=== PATIENT | male | born 1990 | race Caucasian/White ===

== ENCOUNTER 2022-10-04 13:20 | Inpatient (IN) | payer MEDICAID, OTHER ==
--- NOTE | 2022-10-04 14:08 | ED ---
General Adult HPI - General Chief complaint: Psychiatric Symptoms Stated complaint: EPS eval Time Seen by Provider: 10/04/22 13:48 Source: patient Mode of arrival: ambulatory Limitations: no limitations - History of Present Illness Initial comments: Dictation was produced using [employer] dictation software. please excuse any grammatical, word or spelling errors. Chief Complaint: 31-year-old male presents emergency department for depression History of Present Illness: 31-year-old male presents emergency dip for depression. Patient's with his sister who is in the medical field. Patient states she's been depressed since being out of retirement. Denies any suicidal homicidal ideation. [facility] who instructed patient to come to the emergency department to be evaluated. Patient has any medical complaints at this time. Denies any visual or auditory hallucinations. The ROS documented in this emergency department record has been reviewed and confirmed by me. Those systems with pertinent positive or negative responses have been documented in the HPI. All other systems are other negative and/or noncontributory. PHYSICAL EXAM: General Impression: Alert and oriented x3, not in acute distress HEENT: Normocephalic atraumatic, extra-ocular movements intact, pupils equal and reactive to light bilaterally, mucous membranes moist. Cardiovascular: Heart regular rate and rhythm Chest: Able to complete full sentences, no retractions, no tachypnea Abdomen: abdomen soft, non-tender, non-distended, no organomegaly Musculoskeletal: Pulses present and equal in all extremities, no peripheral edema Motor: no focal deficits noted Neurological: CN II-XII grossly intact, no focal motor or sensory deficits noted Skin: Intact with no visualized rashes Psych: Normal affect and mood ED course: 31-year-old male presents emergency department for ashen. He believes that he needs to be admitted to inpatient psychiatric unit. Physical examination is benign. Patient has no medical complaints. Patient medically cleared for EPS evaluation. Nursing notes and chart review was performed Patient evaluated by EPS. Will be admitted to psychiatric facility or inpatient psych. Was pt. sent in by a medical professional or institution (, PA, PROTECTIVE SIGNAL REPAIRER HELPER, urgent care, hospital, or [place] [facility] [place] facility...) When possible be specific @ -No Did you speak to anyone other than the patient for history (EMS, parent, family, police, friend...)? What history was obtained from this source @ -Sister Did you review nursing and triage notes (agree or disagree)? Why? @ -I reviewed and agree with nursing and triage notes Were old charts reviewed (outside hosp., previous admission, EMS record, old EKG, old radiological studies, urgent care reports/EKG's, [place] health care facility records)? Report findings @ -No old charts were reviewed Differential Diagnosis (chest pain, altered mental status, abdominal pain women, abdominal pain men, vaginal bleeding, weakness, fever, dyspnea, syncope, headache, dizziness, GI bleed, back pain, seizure, CVA, palpatations, mental health)? @ -not applicable EKG interpreted by me (3pts min.). @ -None X-rays interpreted by me (1pt min.). @ -None done CT interpreted by me (1pt min.). @ -None done U/S interpreted by me (1pt. min.). @ -None done What testing was considered but not performed or refused? (CT, X-rays, U/S, labs)? Why? @ -None What meds were considered but not given or refused? Why? @ -None Did you discuss the management of the patient with other professionals (professionals i.e. , PA, PROTECTIVE SIGNAL REPAIRER HELPER, lab, RT, psych nurse, social media editor, online communications manager, teacher, booking police officer, behavioral health case manager)? Give summary @ -No Was smoking cessation discussed for >3mins.? @ -No Was critical care preformed (if so, how long)? @ -No Were there social determinants of health that impacted care today? How? (Homelessness, low income, unemployed, alcoholism, drug addiction, transportation, low edu. Level, literacy, decrease access to med. care, retirement, rehab)? @ -No Was there de-escalation of care discussed even if they declined (Discuss DNR or withdrawal of care, Hospice)? DNR status @ -No What co-morbidities impacted this encounter? (DM, HTN, Smoking, COPD, CAD, Cancer, CVA, ARF, Chemo, Hep., AIDS, mental health diagnosis, sleep apnea, morbid obesity)? @ -None Was patient admitted / discharged? Hospital course, mention meds given and route, prescriptions, significant lab abnormalities, going to OR and other pertinent info. @ -[Admitted to psych unit Undiagnosed new problem with uncertain prognosis? @ -No Drug Therapy requiring intensive monitoring for toxicity (Heparin, Nitro, Insulin, Cardizem)? @ -No Were any procedures done? @ -No Diagnosis/symptom? @ -Depression Acute, or Chronic, or Acute on Chronic? @ -Acute Uncomplicated (without systemic symptoms) or Complicated (systemic symptoms)? @ -default Side effects of treatment? @ -No Exacerbation, Progression, or Severe Exacerbation? @ -No Poses a threat to life or bodily function? How? (Chest pain, [place], [place], pneumonia, PE, COPD, DKA, ARF, appy, cholecystitis, CVA, Diverticulitis, Homicidal, Suicidal, threat to staff... and all critical care pts) @ -No - Related Data Home Medications Medication Instructions Recorded Confirmed No Known Home Medications 10/04/22 10/04/22 Allergies Allergy/AdvReac Type Severity Reaction Status Date / Time No Known Allergies Allergy Verified 10/04/22 14:36 Review of Systems ROS Statement: Those systems with pertinent positive or pertinent negative responses have been documented in the HPI. ROS Other: All systems not noted in ROS Statement are negative. Past Medical History Past Medical History: No Reported History History of Any Multi-Drug Resistant Organisms: None Reported Additional Past Surgical History / Comment(s): wrist surgery Past Psychological History: No Psychological Hx Reported Smoking Status: Vaper Past Alcohol Use History: Daily Past Drug Use History: None Reported, Marijuana General Exam Limitations: no limitations Course Vital Signs 10/04/22 13:26 Temperature 98.5 F Pulse Rate 102 H Respiratory 20 Rate Blood Pressure 126/79 O2 Sat by Pulse 98 Oximetry Medical Decision Making - Lab Data Lab Results 10/04/22 Range/Units 17:27 Coronavirus (PCR) Not Detected (Not Detectd) Disposition Clinical Impression: Depression Disposition: TRANSFER TO PSYCH HOSP/UNIT Condition: Fair Referrals: None,Stated [Primary Care Provider] - 1-2 days Time of Disposition: 18:11
[2022-10-04 18:06] LABS: Appearance,Urine Clear (Clear); Bilirubin,Urine Negative (Negative); Blood,Urine Negative (Negative); Color,Urine Colorless; Glucose,Urine (UA) Negative (Negative); Ketones,Urine Negative (Negative); Leukocyte Esterase,Urine Negative (Negative); Nitrite,Urine Negative (Negative); Protein,Urine Negative (Negative); Specific Gravity,Urine 1.007 (1.001-1.035); Urobilinogen,Urine <2.0 mg/dL (<2.0)
[2022-10-04 18:09] LABS: Basophils # (A) 0.1 k/uL (0-0.2); Basophils % (A) 1 %; Eosinophils # (A) 0.1 k/uL (0-0.7); Eosinophils % (A) 1 %; HCT 43.1 % (39.0-53.0); HGB 14.4 gm/dL (13.0-17.5); Lymphocytes # (A) 2.3 k/uL (1.0-4.8); Lymphocytes % (A) 23 %; MCH 32.8 pg (25.0-35.0); MCHC 33.5 g/dL (31.0-37.0); MCV 97.8 fL (80.0-100.0); Mean Platelet Volume 6.6; Monocytes # (A) 0.7 k/uL (0-1.0); Monocytes % (A) 7 %; Neutrophils # (A) 6.5 k/uL (1.3-7.7); Neutrophils % (A) 65 %; Platelet Count 401 k/uL (150-450); RDW 12.2 % (11.5-15.5)
[2022-10-04 18:37] LABS: ALT 20 U/L (4-49); AST 25 U/L (17-59); African American GFR (CKD) >90 (>60 ml/min/1.73 sqM); Albumin 4.6 g/dL (3.5-5.0); Alkaline Phosphatase 88 U/L (38-126); Anion Gap 8 mmol/L; Blood Urea Nitrogen 12 mg/dL (9-20); Calcium 9.6 mg/dL (8.4-10.2); Carbon Dioxide 26 mmol/L (22-30); Chloride 106 mmol/L (98-107); Glucose 94 mg/dL (74-99); Non-African American GFR(CKD) >90 (>60 ml/min/1.73 sqM); Sodium 140 mmol/L (137-145); Total Bilirubin 0.5 mg/dL (0.2-1.3); Total Protein 7.5 g/dL (6.3-8.2)
[2022-10-04 19:00] LABS: Amphetamine Screen,Urine Not Detected (NotDetected); Barbiturate Screen,Urine Not Detected (NotDetected); Benzodiazepines Screen,Urine Not Detected (NotDetected); Cocaine Screen,Urine Not Detected (NotDetected); Methadone Screen, Urine Not Detected (NotDetected); Opiate Screen,Urine Not Detected (NotDetected); Oxycodone Screen, Urine Not Detected (NotDetected); Phencyclidine Screen,Urine Not Detected (NotDetected); Tricyclic Antidepressant,Urine Not Detected (NotDetected); Urn Cannabinoid Scrn Detected (NotDetected)
[2022-10-04] MEDS ORDERED: HALOPERIDOL LACTATE 5 MG/ML 1 ML VIAL IM PRN (22:35)
[2022-10-04] MEDS ORDERED: ACETAMINOPHEN TAB 325 MG TAB PO PRN (22:35)
[2022-10-04] MEDS ORDERED: MAGNESIUM HYDROXIDE 2,400 MG/10 ML CUP PO PRN (22:35)
[2022-10-04] MEDS ORDERED: MAG HYDROX/AL HYDROX/SIMETH 30 ML CUP PO PRN (22:35)
[2022-10-04] MEDS ORDERED: LORazepam 2 MG/ML INJ IM PRN (22:39)
[2022-10-04] MEDS ORDERED: haloperidoL 5 MG TAB PO PRN (22:40)
[2022-10-04] MEDS ORDERED: QUEtiapine 100 MG TAB PO PRN (22:40)
[2022-10-05] MEDS: LORazepam 1 MG TAB PO PRN ×5 (00:24→20:05)
[2022-10-05] MEDS ORDERED: NICOTINE 14MG/24HR PATCH TRANSDERM SCH (09:00)
[2022-10-05] MEDS: NICOTINE GUM (POLACRILEX) 2 MG GUM BUCCAL PRN ×5 (12:35→21:57)
[2022-10-05] MEDS ORDERED: LORazepam 2 MG/ML INJ IM PRN (14:32)
--- NOTE | 2022-10-05 14:49 | P.HP ---
Psychiatric H&P - . H&P Date: 10/05/22 History & Physical: Allergies Allergy/AdvReac Type Severity Reaction Status Date / Time No Known Allergies Allergy Verified 10/05/22 00:38 Vital Signs Temp 98.5 F 10/04/22 22:50 Pulse 75 10/04/22 22:50 Resp 18 10/04/22 22:50 BP 139/69 10/04/22 22:50 Pulse Ox 98 10/04/22 22:50 FiO2 Intake & Output 10/04/22 10/05/22 10/05/22 18:59 06:59 18:59 Weight 78.018 kg 72.1 kg Laboratory Last Values WBC 10.0 k/uL (3.8-10.6) 10/04/22 17:48 RBC 4.40 m/uL (4.30-5.90) 10/04/22 17:48 Hgb 14.4 gm/dL (13.0-17.5) 10/04/22 17:48 Hct 43.1 % (39.0-53.0) 10/04/22 17:48 MCV 97.8 fL (80.0-100.0) 10/04/22 17:48 MCH 32.8 pg (25.0-35.0) 10/04/22 17:48 MCHC 33.5 g/dL (31.0-37.0) 10/04/22 17:48 RDW 12.2 % (11.5-15.5) 10/04/22 17:48 Plt Count 401 k/uL (150-450) 10/04/22 17:48 MPV 6.6 10/04/22 17:48 Neutrophils % 65 % 10/04/22 17:48 Lymphocytes % 23 % 10/04/22 17:48 Monocytes % 7 % 10/04/22 17:48 Eosinophils % 1 % 10/04/22 17:48 Basophils % 1 % 10/04/22 17:48 Neutrophils # 6.5 k/uL (1.3-7.7) 10/04/22 17:48 Lymphocytes # 2.3 k/uL (1.0-4.8) 10/04/22 17:48 Monocytes # 0.7 k/uL (0-1.0) 10/04/22 17:48 Eosinophils # 0.1 k/uL (0-0.7) 10/04/22 17:48 Basophils # 0.1 k/uL (0-0.2) 10/04/22 17:48 Sodium 140 mmol/L (137-145) 10/04/22 17:48 Potassium 4.0 mmol/L (3.5-5.1) 10/04/22 17:48 Chloride 106 mmol/L (98-107) 10/04/22 17:48 Carbon Dioxide 26 mmol/L (22-30) 10/04/22 17:48 Anion Gap 8 mmol/L 10/04/22 17:48 BUN 12 mg/dL (9-20) 10/04/22 17:48 Creatinine 0.82 mg/dL (0.66-1.25) 10/04/22 17:48 Est GFR (CKD-EPI)AfAm >90 (>60 ml/min/1.73 sqM) 10/04/22 17:48 Est GFR (CKD-EPI)NonAf >90 (>60 ml/min/1.73 sqM) 10/04/22 17:48 Glucose 94 mg/dL (74-99) 10/04/22 17:48 Calcium 9.6 mg/dL (8.4-10.2) 10/04/22 17:48 Total Bilirubin 0.5 mg/dL (0.2-1.3) 10/04/22 17:48 AST 25 U/L (17-59) 10/04/22 17:48 ALT 20 U/L (4-49) 10/04/22 17:48 Alkaline Phosphatase 88 U/L (38-126) 10/04/22 17:48 Total Protein 7.5 g/dL (6.3-8.2) 10/04/22 17:48 Albumin 4.6 g/dL (3.5-5.0) 10/04/22 17:48 Urine Color Colorless 10/04/22 17:48 Urine Appearance Clear (Clear) 10/04/22 17:48 Urine pH 6.0 (5.0-8.0) 10/04/22 17:48 Ur Specific [place] 1.007 (1.001-1.035) 10/04/22 17:48 Urine Protein Negative (Negative) 10/04/22 17:48 Urine Glucose (UA) Negative (Negative) 10/04/22 17:48 Urine Ketones Negative (Negative) 10/04/22 17:48 Urine Blood Negative (Negative) 10/04/22 17:48 Urine Nitrite Negative (Negative) 10/04/22 17:48 Urine Bilirubin Negative (Negative) 10/04/22 17:48 Urine Urobilinogen <2.0 mg/dL (<2.0) 10/04/22 17:48 Ur Leukocyte Esterase Negative (Negative) 10/04/22 17:48 Urine Opiates Screen Not Detected (NotDetected) 10/04/22 17:48 Ur Oxycodone Screen Not Detected (NotDetected) 10/04/22 17:48 Urine Methadone Screen Not Detected (NotDetected) 10/04/22 17:48 Ur Propoxyphene Screen Not Detected (NotDetected) 10/04/22 17:48 Ur Barbiturates Screen Not Detected (NotDetected) 10/04/22 17:48 U Tricyclic Antidepress Not Detected (NotDetected) 10/04/22 17:48 Ur Phencyclidine Scrn Not Detected (NotDetected) 10/04/22 17:48 Ur Amphetamines Screen Not Detected (NotDetected) 10/04/22 17:48 U Methamphetamines Scrn Not Detected (NotDetected) 10/04/22 17:48 U Benzodiazepines Scrn Not Detected (NotDetected) 10/04/22 17:48 Urine Cocaine Screen Not Detected (NotDetected) 10/04/22 17:48 U Marijuana (THC) Screen Detected (NotDetected) H 10/04/22 17:48 Coronavirus (PCR) Not Detected (Not Detectd) 10/04/22 17:27 10/05/22 14:22 IDENTIFYING DATA: Patient is a 31-year-old male, 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 Patient was petitioned by patients sister who claims that patient has "paranoid someone is always trying to set him up or following him". Patient also states that patient hasn't has been having "anxiety panic attacks remembering detention incidents". Patient was admitted involuntarily to the mental health unit. Patient was seen conversing with other patients in the activities group and agreeable senior speech pathologist in the office. Patient was rambling at times and appeared to be defensive. He states that he was wrongfully imprisoned for 96 months for robbery and assault. He claims that "there was no gun" and states that it went to a jury trial. He claims that he is currently a felon and was released from detention about a year ago and claims that he feels that "my whole world's falling apart". He claimed that he does have elevated levels of anxiety and also depression. 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 He claims that he does have some mild paranoia, has been avoiding crowds and on edge. He states that his sleep has been on and off, appetite has been fair. Patient denies any suicidal or homicidal ideations intent or plan. At this time patient denies any auditory or visual hallucinations. Patient denies any flight of ideas racing thoughts and increased in goal directed behavior. Patient admits to using marijuana approximately one joint a day, vapes daily. PAST PSYCHIATRIC HISTORY: Patient states that she has no previous psychiatric history. Patient denies being on any psychiatric medications. Patient denies any previous psychiatric hospitalizations. Patient denies any psychiatric outpatient follow-up. Patient denies any history of suicide attempts in the past. Past Medical History: No Reported History History of Any Multi-Drug Resistant Organisms: None Reported Additional Past Surgical History / Comment(s): wrist surgery Past Psychological History: No Psychological Hx Reported Smoking Status: Vaper Past Alcohol Use History: Daily Past Drug Use History: None Reported, Marijuana ALLERGIES: as per EMR CHEMICAL DEPENDENCY HISTORY: as per HPI FAMILY PSYCHIATRIC/SUBSTANCE USE HISTORY: denies SOCIAL HISTORY: Patient was born and raised in [place] [facility]. He claims that he completed his GED. He states that he was imprisoned at the age of 19 for 96 months for robbery and assault charges. 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 MENTAL STATUS EXAM: General Appearance: Patient appears to be thin, short hair, stated age is alert, directable yet argumentative at times. Suspicious pensive. Patient appears to have poor hygiene and grooming. Behavior: Patient is seated without any agitated behavior. Speech: Patient's speech is fluent and nonpressured. Rambling at times. Mood/Affect: Patient reports their mood is depressed and anxious, affect is co ngruent Suicidality/Homicidality: Patient denies having any homicidal ideation intent or plan. Denies any suicidal ideations intent or plan Perceptions: Patient denies any visual hallucinations and denies any auditory hallucinations Though content/process: There is no evidence of any delusional thought content and thought process is linear and goal-directed. Minimizing his need for medications. Memory and concentration: AOX3, grossly intact for the purposes of this session. Can spell "WORLD" backwards Judgment and insight: poor STRENGTHS/WEAKNESSES: strength is that patient is resilient. Weakness is that patient has poor judgment and is impulsive INTELLECT: average IMPRESSIONS: Adjustment disorder with depressed mood and anxiety PTSD Cannabis use disorder Nicotine dependence PLAN: -Patient is admitted under voluntary status to MHU for stabilization of psychiatric symptoms and safety. Patient has signed adult voluntary form and medication consent and is placed in patient's chart. -Medications : Will start patient on Zoloft 50 mg daily for mood/anxiety, alternatively milligrams daily at bedtime for sleep. Trazodone 50 mg daily at bedtime for insomnia/mood. -Ativan and Haldol PRN for agitation/aggression -Patient was counselled on substance abuse and desired to cut back on use -Patient was informed of the risks, benefits and side effects of the medication and patient verbally consented to taking the medications. Patient signed med consent form and was placed in chart. -Internal Medicine consult to perform medical evaluation and physical. -NRT - nicotine patch -SW on board for discharge planning. Encourage patient to participate in groups to work on coping skills. 10/05/22 14:42 10/05/22 14:44
[2022-10-05] MEDS: traZODone HCL 50 MG TAB PO PRN (20:05)
[2022-10-05] MEDS ORDERED: traZODone HCL 50 MG TAB PO SCH (21:00)
[2022-10-05] MEDS: MELATONIN 5 MG TABLET PO SCH (21:58)
--- NOTE | 2022-10-06 03:28 | P.CONS ---
History of Present Illness - Reason for Consult Consult date: 10/06/22 - History of Present Illness The patient is a 31-year-old male with no known PMH who presented to the emergency room with complaints of anxiety and depression. The patient was admitted to the mental health unit where he was seen and evaluated. The patient reports that he had been struggling with anxiety after serving an 8 year long care home sentence. He reports feeling at baseline at the time of interview. Denied experiencing chest discomfort, shortness of breath, fever, chills, cough, nausea, vomiting, abdominal pain, diarrhea. Reports recreational marijuana use. Denied alcohol or tobacco use. Review of systems: Pertinent positives and negatives as discussed in HPI, a complete review of systems was performed and all other systems are negative. Physical examination: General: non toxic, no distress, appears at stated age, normal weight Derm: no unusual rashes/lesions, no unusual ecchymoses, warm, dry Head: atraumatic, normocephalic, symmetric Eyes: EOMI, no lid lag, anicteric sclera ENT: Nose and ears atraumatic, no thrush, no pharyngeal erythema Neck: trachea midline, supple Mouth: no lip lesion, mucus membranes moist Cardiovascular: S1S2 reg, no murmur, no edema Lungs: CTA bilateral, no rhonchi, no rales , no accessory muscle use Abdominal: soft, nontender to palpation, no guarding Ext: no gross muscle atrophy, no contractures, Neuro: No gross focal neuro deficits noted Psych: Alert, oriented, appropriate affect Assessment/plan Marijuana abuse -Advised on importance of cessation Depression and anxiety -As per psychiatry Thank you for allowing us to participate in the care of this patient. We will follow peripherally. Do not hesitate to contact us with questions. Someone can be reached from the [facility] hospitalist group at all hours of the day at [phone]. Past Medical History Past Medical History: No Reported History History of Any Multi-Drug Resistant Organisms: None Reported Additional Past Surgical History / Comment(s): wrist surgery Smoking Status: Vaper - Past Family History Father Family Medical History: No Reported History (healthy ) Medications and Allergies Home Medications Medication Instructions Recorded Confirmed Type No Known Home Medications 10/04/22 10/04/22 History Allergies Allergy/AdvReac Type Severity Reaction Status Date / Time No Known Allergies Allergy Verified 10/05/22 00:38 Results CBC & Chem 7: 10/04/22 17:48 10/04/22 17:48
[2022-10-06] MEDS: LORazepam 1 MG TAB PO PRN ×2 (09:10→18:53)
[2022-10-06] MEDS: NICOTINE GUM (POLACRILEX) 2 MG GUM BUCCAL PRN ×5 (09:11→21:06)
--- NOTE | 2022-10-06 12:29 | P.PN ---
Subjective Principal diagnosis: Progress note Oct 06 2021 He was seen today in person and Rx and history was reviewed. History of traumatic stress realted to incarcernation x 96 months. He complained of escalating episodes of panic attacks and felt his subjective experiense with medication for his panci attacks was not managed well, leaving him "confused " . He did not complain of any paranoid delusions in contrast to the early H/P note. He had parnaoid ides of reference and would like his Rx reasssessed. His subjective experience with Ativan was a positive one ; he was well aware of the risks of dependence; however, SSRI was disliked due to his family member negative experiences. I went over him other Rx: remeron but he did not like it either. HE had secondary mood changes of irritability and complained [facility]. OBj:: Mental status exam. dressed appropriately, he was somewhat pressured ; however, he remained coherent with jittery movement of his extremities. Affect; slighlty agitated and irritable congruent with his thought content. Somewhat obsessed or preocuupied with his legal experience. He talked about his engagement with the residential program for his mental health problem and found the change too much for him to manage as well as his interersonal stressors. Full range of affect. Thught process; No hallucinations. No paranoid delusions or ideas of reference. No suicidal or homicidal ideaitons. Cog: oriented , Fair insight into his conditon Diagnosis; Psychosis NOS. to rule out paranoid delusional disorder. PTSD and panic disorder. differential atypical depressive disorder NOS Management HE agreed with the plan Rx of starting him on low dosage of gABApentin 100 mg po bid; No history of opioid use. He would continue to be on 1 mg po prn ativan. He would be encouraged to participate in unit activities. and to plan for next stage of his recovery. Discharge planning : as scheduled. Rx. for PTSD and Panic attacks : psychoeducational materials were explaiend to pt. monitor response by tomorrow Objective - Vital Signs Vital signs: Vital Signs Temp 98.2 F 10/05/22 22:34 Pulse 100 10/06/22 09:12 Resp 17 10/05/22 22:34 BP 124/69 10/06/22 09:12 Pulse Ox 97 10/05/22 22:34 FiO2 - Labs CBC & Chem 7: 10/04/22 17:48 10/04/22 17:48
[2022-10-06] MEDS: GABAPENTIN 100 MG CAP PO SCH (21:05)
[2022-10-06] MEDS: MELATONIN 5 MG TABLET PO SCH (21:20)
[2022-10-07] MEDS: LORazepam 1 MG TAB PO PRN ×3 (00:08→20:01)
[2022-10-07] MEDS: NICOTINE GUM (POLACRILEX) 2 MG GUM BUCCAL PRN ×8 (00:10→23:44)
[2022-10-07 00:11] VITALS: RESP 16
[2022-10-07] MEDS: GABAPENTIN 100 MG CAP PO SCH ×2 (08:54→20:01)
[2022-10-07] MEDS: NICOTINE 7MG/24HR PATCH TRANSDERM SCH (14:03)
[2022-10-07] MEDS: traZODone HCL 50 MG TAB PO PRN ×2 (20:03→23:44)
--- NOTE | 2022-10-07 20:55 | P.PN ---
Subjective Progress Note Date: 10/07/22 Principal diagnosis: Progress note He was seen tdoay for review of his Rx.He was still preoccupied with Rx; and his need for PRN Loraxepam 2 mg . HE was cautioned with abuse and dependence of BNZ; howver, he admitted he was experienceing flashback of his 8 years of incarcernation . He has cryin spell sporadic and wanted for his AP pentin to continue. HE showed good response to low dosage of Gabaenin. He did not abuse opiat and hence no advese events to combined GABApentin of his Rx. He was asked to be formualting discharge planning. Diag; PTSD comorbid Depessive Disorder NOS. Plan: He fulfilled criteria of inpatient admisiosn. Readay to be discharge by mid-week Follow up imortant for him to prevent relapse. Objective - Vital Signs Vital signs: Vital Signs Temp 97.9 F 10/07/22 00:10 Pulse 101 H 10/07/22 10:10 Resp 16 10/07/22 00:10 BP 130/80 10/07/22 10:10 Pulse Ox 98 10/07/22 00:10 FiO2 - Labs CBC & Chem 7: 10/04/22 17:48 10/04/22 17:48
[2022-10-07] MEDS: MELATONIN 5 MG TABLET PO SCH ×2 (23:41→23:44)
[2022-10-08 07:10] VITALS: TEMP 98.2
[2022-10-08] MEDS: LORazepam 1 MG TAB PO PRN ×2 (08:04→16:52)
[2022-10-08] MEDS: NICOTINE 7MG/24HR PATCH TRANSDERM SCH (08:04)
[2022-10-08] MEDS: NICOTINE GUM (POLACRILEX) 2 MG GUM BUCCAL PRN ×4 (08:04→16:53)
[2022-10-08] MEDS: GABAPENTIN 100 MG CAP PO SCH (09:35)
--- NOTE | 2022-10-08 14:12 | P.PN ---
Progress Note - Text Progress Note Date: 10/08/22 Interval History: Patient was seen wandering the hallways and was agreeable to speak with group underwriter in the office. Patient continues to be irritable at times and demanding. He was also rambling about the medications and claims that is not helping him. He was fairly focused on the Neurontin. He was in fact agreeable to try the Zoloft today and also a low dose of Seroquel as he is still not sleeping at nighttime. He claims he is feeling very anxious on the unit and claims that "it reminded me of present". He claims that he is eating fairly at this time and trying to go to groups. At this time patient denies any suicidal or homical ideations, intent or plan. Patient denies any auditory, visual hallucinations and denies any delusions. Initially mildly paranoid and argumentative. Patient denies any side effects from the medications and has been compliant with meds. Mental Status Exam: General Appearance: Patient appears to be thin, short hair, stated age is alert, directable yet argumentative at times. Patient appears to have improving hygiene and grooming. Behavior: Patient is seated without any agitated behavior. Argumentative. Mild paranoia. Speech: Patient's speech is fluent and nonpressured. Rambling at times. Mood/Affect: Patient reports their mood is depressed and anxious, affect is congruent Suicidality/Homicidality: Patient denies having any homicidal ideation intent or plan. Denies any suicidal ideations intent or plan Perceptions: Patient denies any visual hallucinations and denies any auditory hallucinations Though content/process: There is no evidence of any delusional thought content and thought process is linear and goal-directed. Focused on discharge. Memory and concentration: AOX3, grossly intact for the purposes of this session Judgment and insight: poor IMPRESSIONS: Adjustment disorder with depressed mood and anxiety PTSD Cannabis use disorder Nicotine dependence Plan: -Patient continues to meet criteria for inpatient psychiatric admission for symptom stabilization and safety. Patient has signed adult voluntary form and medication consent and was placed in patient's chart. -Medications: Zoloft 50 mg daily for mood/anxiety, Seroquel 25 mg daily at bedtime for insomnia/mood stabilization. -When necessary Ativan and Haldol for agitation/aggression. -NRT - nicotine patch -SW on board for discharge planning. Encouraged the patient to participate in milieu. Likely discharge in 1-2 days.
[2022-10-08] MEDS: SERTRALINE 50 MG TAB PO SCH (14:15)
[2022-10-08 16:55] VITALS: BP 148/90; PULSE 102
[2022-10-08] MEDS: MELATONIN 5 MG TABLET PO SCH (20:11)
[2022-10-08] MEDS ORDERED: QUEtiapine 25 MG TAB PO SCH (21:00)
[2022-10-09] MEDS: NICOTINE GUM (POLACRILEX) 2 MG GUM BUCCAL PRN ×2 (06:57→09:09)
[2022-10-09] MEDS: NICOTINE 7MG/24HR PATCH TRANSDERM SCH (08:30)
[2022-10-09] MEDS: SERTRALINE 50 MG TAB PO SCH (08:30)
[2022-10-09] MEDS: LORazepam 1 MG TAB PO PRN (08:32)
--- NOTE | 2022-10-09 11:38 | P.DS ---
Providers Date of admission: 10/04/22 22:25 Expected date of discharge: 10/09/22 Attending physician: Graham Fitch MD Consults: 10/04/22 22:35 Consult Physician Routine Consulting Provider: Sheng Duval Consult Reason/Comments: H&P Do you want consulting provider notified?: Yes Primary care physician: Stated None - Discharge Diagnosis(es) (1) Adjustment disorder with mixed anxiety and depressed mood Current Visit: Yes Status: Acute Priority: High (2) PTSD (post-traumatic stress disorder) Current Visit: Yes Status: Acute Priority: High (3) Cannabis use disorder Current Visit: Yes Status: Acute Priority: Medium (4) Nicotine dependence Current Visit: Yes Status: Acute Priority: Low Hospital Course: Admission HPI: Admission note was completed by health science writer "Patient is a 31-year-old male, 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 Patient presented to the hospital yesterday with complaints of. Patient was petitioned by patients sister who claims that patient has "paranoid someone is always trying to set him up or following him". Patient also states that patient hasn't has been having "anxiety panic attacks remembering penitentiary incidents". Patient was admitted involuntarily to the mental health unit. 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 Patient was rambling at times and appeared to be defensive. He states that he was wrongfully imprisoned for 96 months for robbery and assault. He claims that "there was no gun" and states that it went to a jury trial. He claims that he is currently a felon and was released from penitentiary about a year ago and claims that he feels that "my whole world's falling apart". He claimed that he does have elevated levels of anxiety and also depression. 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 He claims that he does have some mild paranoia, has been avoiding crowds and on edge. He states that his sleep has been on and off, appetite has been fair. Patient denies any suicidal or homicidal ideations intent or plan. At this time patient denies any auditory or visual hallucinations. Patient denies any flight of ideas racing thoughts and increased in goal directed behavior. Patient admits to using marijuana approximately one joint a day, vapes daily." Hospital course: Upon admission to the unit patient was directable and agreeable to commence treatment and signed adult voluntary form. Patient was initially suspicious of treatment and also being on the unit however with time in treatment, patient eventually got along well with other patients on the unit and followed unit protocol. Patient was compliant with the medications and denied any side effects throughout hospital course. Patient was started on Zoloft 50 mg daily for mood/anxiety, Seroquel 25 mg daily at bedtime for insomnia/mood st abilization. Patient spoke of his stressors and engaged in therapy both group and individual. Patient was also seen by medical team for history and physical exam. Throughout the course of the hospitalization patient gradually improved with regards to mood, anxiety, paranoia, sleep and became more future oriented with improved insight and judgment. On the day of discharge patient denied any suicidal or homicidal ideations intent or plan denied any auditory or visual hallucinations. Patient endorsed wanting to live for his health and family. The patient denied any access to guns or weapons. Patient denied any paranoia and did not endorse any delusions. Patient does have a significant history of substance abuse and was counseled on abstaining from all substances including alcohol and marijuana. Patient was offered however declined inpatient substance- abuse rehab. Patient was also counseled on the medications and need for regular compliance and was encouraged to follow-up with their outpatient appointment for mental health and also for primary care. Prior to discharge a family meeting will be arranged by social service director to answer any questions and ensure safety upon discharge. Mental status exam: General Appearance: Patient appears to be thin, stated age is alert, pleasant, and cooperative. Patient is in no acute distress and has improved hygiene and grooming Behavior: Patient is calmly seated without any agitated behavior. Speech: Patient's speech is fluent and nonpressured. Mood/Affect: Patient reports their mood is "good", affect is congruent and euthymic. Suicidality/Homicidality: Patient denies having any suicidal or homicidal ideation intent or plan. Perceptions: Patient denies any auditory or visual hallucinations. Though content/process: There is no evidence of any delusional thought content and thought process is linear and goal-directed. more future oriented Memory and concentration: AOX3, grossly intact for the purposes of this session. Can spell "WORLD" backwards correctly. Judgment and insight: improved with guarded prognosis Impression: Adjustment disorder mixed with depressed mood and anxiety PTSD Cannabis use disorder Nicotine dependence Plan: -Continue with discharge today as patient has improved and stabilized psychiatrically and is not currently an imminent threat to himself and/or others. Patient will remain at chronically elevated risk for harm to self and/or others due to his substance abuse. -Continue medications: Zoloft 50 mg daily for mood/anxiety, Seroquel 25 mg daily at bedtime for insomnia/mood stabilization. -Patient was counseled on the need for medication compliance and appropriate follow-up at mental health and also primary care for medical issues. Patient verbalized understanding and agreed. -Social work to arrange for and conduct family meeting to ensure safety upon discharge and answer any questions/concerns. Social work also to arrange for patients follow up appointments for psychiatric care along with follow up with primary care provider. -Patient counseled on abstaining from recreational drugs and marijuana and alcohol. Was informed/educated on the adverse effects on their physical and ment al health. Patient verbally agreed and understood. Patient was offered substance abuse treatment however declined at this time. -Patient was instructed to return to the hospital or seek immediate medical care if their psychiatric or medical symptoms do worsen or reoccur. Allergies Allergy/AdvReac Type Severity Reaction Status Date / Time No Known Allergies Allergy Verified 10/05/22 00:38 Laboratory Results WBC 10.0 k/uL (3.8-10.6) 10/04/22 17:48 RBC 4.40 m/uL (4.30-5.90) 10/04/22 17:48 Hgb 14.4 gm/dL (13.0-17.5) 10/04/22 17:48 Hct 43.1 % (39.0-53.0) 10/04/22 17:48 MCV 97.8 fL (80.0-100.0) 10/04/22 17:48 MCH 32.8 pg (25.0-35.0) 10/04/22 17:48 MCHC 33.5 g/dL (31.0-37.0) 10/04/22 17:48 RDW 12.2 % (11.5-15.5) 10/04/22 17:48 Plt Count 401 k/uL (150-450) 10/04/22 17:48 MPV 6.6 01/12/23 17:48 Neutrophils % 65 % 10/04/22 17:48 Lymphocytes % 23 % 10/04/22 17:48 Monocytes % 7 % 10/04/22 17:48 Eosinophils % 1 % 10/04/22 17:48 Basophils % 1 % 10/04/22 17:48 Neutrophils # 6.5 k/uL (1.3-7.7) 10/04/22 17:48 Lymphocytes # 2.3 k/uL (1.0-4.8) 10/04/22 17:48 Monocytes # 0.7 k/uL (0-1.0) 10/04/22 17:48 Eosinophils # 0.1 k/uL (0-0.7) 10/04/22 17:48 Basophils # 0.1 k/uL (0-0.2) 10/04/22 17:48 Sodium 140 mmol/L (137-145) 10/04/22 17:48 Potassium 4.0 mmol/L (3.5-5.1) 10/04/22 17:48 Chloride 106 mmol/L (98-107) 10/04/22 17:48 Carbon Dioxide 26 mmol/L (22-30) 10/04/22 17:48 Anion Gap 8 mmol/L 10/04/22 17:48 BUN 12 mg/dL (9-20) 10/04/22 17:48 Creatinine 0.82 mg/dL (0.66-1.25) 10/04/22 17:48 Est GFR (CKD-EPI)AfAm >90 (>60 ml/min/1.73 sqM) 10/04/22 17:48 Est GFR (CKD-EPI)NonAf >90 (>60 ml/min/1.73 sqM) 10/04/22 17:48 Glucose 94 mg/dL (74-99) 10/04/22 17:48 Calcium 9.6 mg/dL (8.4-10.2) 10/04/22 17:48 Total Bilirubin 0.5 mg/dL (0.2-1.3) 10/04/22 17:48 AST 25 U/L (17-59) 10/04/22 17:48 ALT 20 U/L (4-49) 10/04/22 17:48 Alkaline Phosphatase 88 U/L (38-126) 10/04/22 17:48 Total Protein 7.5 g/dL (6.3-8.2) 10/04/22 17:48 Albumin 4.6 g/dL (3.5-5.0) 10/04/22 17:48 Urine Color Colorless 10/04/22 17:48 Urine Appearance Clear (Clear) 10/04/22 17:48 Urine pH 6.0 (5.0-8.0) 10/04/22 17:48 Ur Specific [place] 1.007 (1.001-1.035) 10/04/22 17:48 Urine Protein Negative (Negative) 10/04/22 17:48 Urine Glucose (UA) Negative (Negative) 10/04/22 17:48 Urine Ketones Negative (Negative) 10/04/22 17:48 Urine Blood Negative (Negative) 10/04/22 17:48 Urine Nitrite Negative (Negative) 10/04/22 17:48 Urine Bilirubin Negative (Negative) 10/04/22 17:48 Urine Urobilinogen <2.0 mg/dL (<2.0) 10/04/22 17:48 Ur Leukocyte Esterase Negative (Negative) 10/04/22 17:48 Urine Opiates Screen Not Detected (NotDetected) 10/04/22 17:48 Ur Oxycodone Screen Not Detected (NotDetected) 10/04/22 17:48 Urine Methadone Screen Not Detected (NotDetected) 10/04/22 17:48 Ur Propoxyphene Screen Not Detected (NotDetected) 10/04/22 17:48 Ur Barbiturates Screen Not Detected (NotDetected) 10/04/22 17:48 U Tricyclic Antidepress Not Detected (NotDetected) 10/04/22 17:48 Ur Phencyclidine Scrn Not Detected (NotDetected) 10/04/22 17:48 Ur Amphetamines Screen Not Detected (NotDetected) 10/04/22 17:48 U Methamphetamines Scrn Not Detected (NotDetected) 10/04/22 17:48 U Benzodiazepines Scrn Not Detected (NotDetected) 10/04/22 17:48 Urine Cocaine Screen Not Detected (NotDetected) 10/04/22 17:48 U Marijuana (THC) Screen Detected (NotDetected) H 10/04/22 17:48 Coronavirus (PCR) Not Detected (Not Detectd) 10/04/22 17:27 Vital Signs Temp 98.2 F 10/08/22 06:27 Pulse 102 H 10/08/22 16:54 Resp 16 10/08/22 06:27 BP 148/90 10/08/22 16:54 Pulse Ox 98 10/08/22 06:27 FiO2 Patient Condition at Discharge: Stable Plan - Discharge Summary Discharge Rx Participant: Yes New Discharge Prescriptions: New Nicotine 7Mg/24Hr Patch [Habitrol] 1 patch TRANSDERM DAILY 14 Days #14 patch Melatonin 10 mg PO HS tab Nicotine Gum (Polacrilex) [Nicorette] 2 mg BUCCAL Q2HR PRN #0 pieceofgum PRN Reason: Nicotine Cravings Sertraline [Zoloft] 50 mg PO DAILY 30 Days #30 tab QUEtiapine [SEROquel] 25 mg PO HS 30 Days #30 tab Discharge Medication List Melatonin 10 mg PO HS tab 10/09/22 [Rx] Nicotine 7Mg/24Hr Patch [Habitrol] 1 patch TRANSDERM DAILY 14 Days #14 patch 10/09/22 [Rx] Nicotine Gum (Polacrilex) [Nicorette] 2 mg BUCCAL Q2HR PRN #0 pieceofgum 10/09/22 [Rx] QUEtiapine [SEROquel] 25 mg PO HS 30 Days #30 tab 10/09/22 [Rx] Sertraline [Zoloft] 50 mg PO DAILY 30 Days #30 tab 10/09/22 [Rx] Follow up Appointment(s)/Referral([facility] - 1 Week Activity/Diet/Wound Care/Special Instructions: Avoid the use of street drugs and alcohol. Take all prescriptions as prescribed. When you are in need of refills on your medications, please contact your medical provider and/or outpatient psychiatrist to have this done. Please go to scheduled outpatient appointment for aftercare treatment. If symptoms return or become worse, call the crisis line at and/or go to the nearest emergency room for evaluation Discharge Disposition: HOME SELF-CARE
== END 2022-10-09 13:31 | disposition home or self-care (01) | DRG 882 ==
LOC: EC 13:20 → 3MHU 22:25
PROVIDERS: ADMIT Psychiatry & Neurology Psychiatry; ATTEND Psychiatry & Neurology Psychiatry
DX: F43.23 Adjustment disorder with mixed anxiety and depressed mood (principal); F43.10 Post-traumatic stress disorder, unspecified; F12.90 Cannabis use, unspecified, uncomplicated; F17.200 Nicotine dependence, unspecified, uncomplicated; F22 Delusional disorders; F41.0 Panic disorder [episodic paroxysmal anxiety]; G47.00 Insomnia, unspecified; Z79.899 Other long term (current) drug therapy; Z20.822 Contact with and (suspected) exposure to COVID-19
CPT/HCPCS: 36415; 80053; 80306; 81003; 82075; 85025; 87635; 99285